=== PATIENT | male | born 1990 | race African-American/Black ===

== ENCOUNTER 2017-05-21 13:48 | Emergency (ER) | payer OTHER, SELFPAY ==
--- NOTE | 2017-05-21 15:27 | ER ---
Nurse's Notes [facility] Name: Marlo Davison Age: 27 yrs Sex: Male : 1990 Arrival Date: 05/21/2017 Time: 13:53 Bed 14 Private MD: Diagnosis: Cough;Diarrhea, unspecified Presentation: 05/21 14:04 Presenting complaint: Patient states: cough, difficulty breathing, nasal congestion ss that have been going on for months. Pt reports he was recently seen at [place] [facility], for abdominal issues, and discharged home with the diagnosis of acid reflux. Pt states that his mother wanted him to get checked today for black mold. Transition of care: patient was not received from another setting of care. Onset of symptoms is unknown. Care prior to arrival: None. 14:04 Method Of Arrival: Ambulatory ss 14:04 Acuity: NIMO 3 ss Triage Assessment: 14:45 Respiratory: the patient has mild shortness of breath. rb1 Historical: - Allergies: 14:06 No Known Allergies; ss - Home Meds: 14:06 None [Active]; ss - PMHx: 14:06 None; ss - PSHx: 14:06 None; ss - Immunization history:: Adult Immunizations unknown. - Social history:: Smoking status: Patient/guardian denies using tobacco. Screenin:45 Abuse screen: Denies threats or abuse. Nutritional screening: No deficits noted. rb1 Tuberculosis screening: No symptoms or risk factors identified. Fall Risk None identified. Assessment: 14:45 General: Appears in no apparent distress. comfortable, Behavior is calm, cooperative. rb1 General: Denies fever. Pain: Complains of pain in epigastric area Pain currently is 3 out of 10 on a pain scale. Pain began 2-3 weeks ago. Neuro: Level of Consciousness is awake, alert, obeys commands, Oriented to person, place, time, situation. Cardiovascular: Capillary refill is > 3 seconds is brisk in bilateral fingers Rhythm is regular. Respiratory: Airway is patent Respiratory effort is even, unlabored, Respiratory pattern is regular, symmetrical, Breath sounds are clear bilaterally. GI: Reports diarrhea, since 2-3 weeks. : No signs and/or symptoms were reported regarding the genitourinary system. Derm: Skin is pink, warm \T\ dry. 15:39 Reassessment: Patient appears in no apparent distress at this time. No changes from rb1 previously documented assessment. Vital Signs: 14:06 BP 157 / 95; Pulse 73; Resp 15; Temp 98.0(TE); Pulse Ox 98% on R/A; Weight 113.4 kg; Height 6 ft. 3 in. (190.50 cm); Pain 0/10; 15:39 BP 112 / 57; Pulse 66; Resp 17; Pulse Ox 100% on R/A; rb1 14:06 Body Mass Index 31.25 (113.40 kg, 190.50 cm) ED Course: 13:53 Patient arrived in ED. rg4 14:06 Triage completed. 14:06 Arm band placed on left wrist. 14:41 Sarath Hua MD is Attending Physician. [facility] 14:44 Ibis Dove, RN is Primary Nurse. rb1 14:45 Patient has correct armband on for positive identification. Bed in low position. Call rb1 light in reach. Side rails up X 1. Pulse ox on. NIBP on. 15:55 No provider procedures requiring assistance completed. Patient did not have IV access rb1 during this emergency room visit. Administered Medications: No medications were administered Outcome: 15:27 Discharge ordered by . [facility] 15:55 Discharged to home ambulatory. rb1 15:55 Condition: stable 15:55 Discharge instructions given to patient, Instructed on discharge instructions, follow up and referral plans. Demonstrated understanding of instructions, follow-up care, Prescriptions given X none 15:55 Patient left the ED. rb1 Signatures: Sarath Hua MD MD cha Smirch, Shelby, RN RN Ibis Dove, ALYSSA SHAH [facility] Emily Mark rg4 Corrections: (The following items were deleted from the chart) 16:11 15:41 Reassessment: Patient appears in no apparent distress at this time. No changes rb1 from previously documented assessment. rb1 16:13 16:12 Patient left the ED. rb1 rb1
--- NOTE | 2017-05-21 15:27 | EDPHYS ---
Physician Documentation [facility] Name: Marlo Davison Age: 27 yrs Sex: Male : 1990 Arrival Date: 05/21/2017 Time: 13:53 Bed 14 Private MD: ED Physician Sarath Hua HPI: 05/21 15:20 This 27 yrs old Black Male presents to ER via Ambulatory with complaints of Breathing tommy Difficulty. Historical: - Allergies: 14:06 No Known Allergies; ss - Home Meds: 14:06 None [Active]; ss - PMHx: 14:06 None; ss - PSHx: 14:06 None; ss - Immunization history:: Adult Immunizations unknown. - Social history:: Smoking status: Patient/guardian denies using tobacco. ROS: 15:21 Constitutional: Negative for fever, chills, and weight loss, Eyes: Negative for injury, tommy pain, redness, and discharge, ENT: Negative for injury, pain, and discharge, Neck: Negative for injury, pain, and swelling, Cardiovascular: Negative for chest pain, palpitations, and edema, Back: Negative for injury and pain, : Negative for injury, bleeding, discharge, and swelling, MS/Extremity: Negative for injury and deformity, Skin: Negative for injury, rash, and discoloration, Neuro: Negative for headache, weakness, numbness, tingling, and seizure, Psych: Negative for depression, anxiety, suicide ideation, homicidal ideation, and hallucinations, Allergy/Immunology: Negative for hives, rash, and allergies, Endocrine: Negative for neck swelling, polydipsia, polyuria, polyphagia, and marked weight changes, Hematologic/Lymphatic: Negative for swollen nodes, abnormal bleeding, and unusual bruising. 15:21 Respiratory: Positive for cough, with no reported sputum. 15:21 Abdomen/GI: Positive for diarrhea. Exam: 15:21 Constitutional: This is a well developed, well nourished patient who is awake, alert, tommy and in no acute distress. Head/Face: Normocephalic, atraumatic. Eyes: Pupils equal round and reactive to light, extra-ocular motions intact. Lids and lashes normal. Conjunctiva and sclera are non-icteric and not injected. Cornea within normal limits. Periorbital areas with no swelling, redness, or edema. ENT: Nares patent. No nasal discharge, no septal abnormalities noted. Tympanic membranes are normal and external auditory canals are clear. Oropharynx with no redness, swelling, or masses, exudates, or evidence of obstruction, uvula midline. Mucous membranes moist. Neck: Trachea midline, no thyromegaly or masses palpated, and no cervical lymphadenopathy. Supple, full range of motion without nuchal rigidity, or vertebral point tenderness. No Meningismus. Chest/axilla: Normal chest wall appearance and motion. Nontender with no deformity. No lesions are appreciated. Cardiovascular: Regular rate and rhythm with a normal S1 and S2. No gallops, murmurs, or rubs. Normal PMI, no JVD. No pulse deficits. Respiratory: Lungs have equal breath sounds bilaterally, clear to auscultation and percussion. No rales, rhonchi or wheezes noted. No increased work of breathing, no retractions or nasal flaring. Abdomen/GI: Soft, non-tender, with normal bowel sounds. No distension or tympany. No guarding or rebound. No evidence of tenderness throughout. Back: No spinal tenderness. No costovertebral tenderness. Full range of motion. Male : Normal genitalia with no discharge or lesions. Skin: Warm, dry with normal turgor. Normal color with no rashes, no lesions, and no evidence of cellulitis. MS/ Extremity: Pulses equal, no cyanosis. Neurovascular intact. Full, normal range of motion. Neuro: Awake and alert, GCS 15, oriented to person, place, time, and situation. Cranial nerves II-XII grossly intact. Motor strength 5/5 in all extremities. Sensory grossly intact. Cerebellar exam normal. Normal gait. Psych: Awake, alert, with orientation to person, place and time. Behavior, mood, and affect are within normal limits. Vital Signs: 14:06 BP 157 / 95; Pulse 73; Resp 15; Temp 98.0(TE); Pulse Ox 98% on R/A; Weight 113.4 kg; ss Height 6 ft. 3 in. (190.50 cm); Pain 0/10; 15:39 BP 112 / 57; Pulse 66; Resp 17; Pulse Ox 100% on R/A; rb1 14:06 Body Mass Index 31.25 (113.40 kg, 190.50 cm) MDM: 14:41 Patient medically screened. tommy 15:25 Data reviewed: vital signs, nurses notes, lab test result(s), hepatic panel, [facility] urinalysis, radiologic studies, plain films. Administered Medications: No medications were administered Disposition: 05/21/17 15:27 Discharged to Home. Impression: Cough, Diarrhea, unspecified. - Condition is Stable. - Discharge Instructions: Food Choices to Help Relieve Diarrhea, Adult, Diarrhea, Cool Mist Vaporizers, Diarrhea, [id number], Cough, Adult, [id number]. - Medication Reconciliation Form, Thank You Letter, Antibiotic Education, Prescription Opioid Use form. - Follow up: Private Physician; When: 2 - 3 days; Reason: Recheck today's complaints, Continuance of care, Re-evaluation by your physician. - Problem is new. - Symptoms have improved. Signatures: Sarath uHa MD MD cha Smirch, Shelby, RN RN ss Ibis Dove, RN RN rb1
== END 2017-05-21 16:12 | disposition home or self-care (01) ==
LOC: ER 13:48
DX: R19.7 Diarrhea, unspecified (principal)
CPT/HCPCS: 99283

== ENCOUNTER 2017-09-09 08:51 | Emergency (ER) | payer OTHER ==
[2017-09-09] MEDS ORDERED: DIAZEPAM 5 MG TABLET ONE (09:10)
[2017-09-09] MEDS ORDERED: KETOROLAC 30 MG/ML INJ ONE (09:10)
--- NOTE | 2017-09-09 09:48 | ER ---
Nurse's Notes [facility] Name: Marlo Davison Age: 27 yrs Sex: Male : 1990 Arrival Date: 09/09/2017 Time: 08:54 Bed 19 Private MD: Ulices Sanchez Diagnosis: Pain in left shoulder Presentation: 09/09 09:00 Presenting complaint: Patient states: Left shoulder pain after colliding with another hb player during basketball game yesterday. Transition of care: patient was not received from another setting of care. Onset of symptoms was September 08, 2017. Risk Assessment: Do you want to hurt yourself or someone else? Patient reports no desire to harm self or others. Initial Sepsis Screen: Does the patient meet any 2 criteria? No. Patient's initial sepsis screen is negative. Does the patient have a suspected source of infection? No. Patient's initial sepsis screen is negative. Care prior to arrival: None. 09:00 Method Of Arrival: Ambulatory 09:00 Acuity: NIMO 4 hb Triage Assessment: 09:02 General: Appears in no apparent distress. uncomfortable, Behavior is calm, cooperative. hb Pain: Pain currently is 10 out of 10 on a pain scale. Neuro: Level of Consciousness is awake, alert, obeys commands, Oriented to person, place, time, situation. Cardiovascular: Capillary refill < 3 seconds Patient's skin is warm and dry. Respiratory: Airway is patent Trachea midline Respiratory effort is even, unlabored, Respiratory pattern is regular, symmetrical. Musculoskeletal: Reports pain in left shoulder. 09:13 Injury Description: Crush injury. hj Historical: - Allergies: 09:01 No Known Allergies; hb - Home Meds: 09: None [Active]; hb - PMHx: 09: None; hb - PSHx: 09:01 None; hb - Immunization history:: Adult Immunizations up to date. - Social history:: Smoking status: unknown. - Ebola Screening: : No symptoms or risks identified at this time. Screenin:06 Abuse screen: Denies threats or abuse. Denies injuries from another. Nutritional hj screening: No deficits noted. Fall Risk None identified. 09:06 Tuberculosis screening: No symptoms or risk factors identified. hj Assessment: 09:06 General: Appears in no apparent distress. uncomfortable, Behavior is calm, cooperative, hj appropriate for age. Pain: Complains of pain in posterior aspect of left shoulder and anterior aspect of left shoulder. Neuro: Level of Consciousness is awake, alert, obeys commands, Oriented to person, place, time, situation, Appropriate for age. Cardiovascular: Capillary refill < 3 seconds Patient's skin is warm and dry. Respiratory: Airway is patent Respiratory effort is even, unlabored, Respiratory pattern is regular, symmetrical. : No signs and/or symptoms were reported regarding the genitourinary system. EENT: No signs and/or symptoms were reported regarding the EENT system. Derm: No signs and/or symptoms reported regarding the dermatologic system. Musculoskeletal: Range of motion: limited in posterior aspect of left shoulder and anterior aspect of left shoulder Reports pain in posterior aspect of left shoulder and anterior aspect of left shoulder. 09:19 Reassessment: awaiting xray;. Vital Signs: 09:00 BP 147 / 91; Pulse 70; Resp 16; Temp 97.9; Pulse Ox 99% on R/A; Pain 10/10; hb ED Course: 08:54 Patient arrived in ED. sb2 08:54 Ulices Sanchez DO is Private Physician. sb2 08:57 Katlyn Myers FNP-C [facility]. snw 08:57 Sraath Hua MD is Attending Physician. snw 08:59 Jose Ramon Jordan, ALYSSA is Primary Nurse. hj 09:00 Triage completed. hb 09:01 Arm band placed on right wrist. hb 09:13 Patient has correct armband on for positive identification. Bed in low position. Call hj light in reach. Side rails up X 1. 09:43 X-ray completed. Portable x-ray completed in exam room. Patient tolerated procedure jb2 well. 09:44 Shoulder Left (2 View) XRAY In Process Unspecified. EDMS 09:47 Ulices Sanchez DO is Referral Physician. snw 09:52 Sling applied to left arm. mh5 10:07 No provider procedures requiring assistance completed. Patient did not have IV access hj during this emergency room visit. 11:07 Sling applied to left arm. mh5 Administered Medications: 09:06 Drug: TORadol 60 mg Route: IM; Site: right deltoid; hj 09:12 Follow up: Response: No adverse reaction; Pain is decreased hj 09:06 Drug: Valium 5 mg Route: PO; 09:12 Follow up: Response: No adverse reaction; Anxiety decreased Outcome: 09:48 Discharge ordered by MD. echavarria 10:07 Discharged to home ambulatory. 10:07 Condition: stable 10:07 Discharge instructions given to patient, family, Instructed on discharge instructions, follow up and referral plans. medication usage, Demonstrated understanding of instructions, follow-up care, medications, Prescriptions given X 2. 10:08 Patient left the ED. Signatures: Dispatcher [employer] EDMS Katlyn Myers, DARREN-C RECORD CUTTER-Csnw Ki Varner2 Jose Ramon Jordan RN RN hj Baxter, Heather, RN RN hb Martinez, Maria 5 Steph Mukherjee2
--- NOTE | 2017-09-09 09:48 | EDPHYS ---
Physician Documentation [facility] Name: Marlo Davison Age: 27 yrs Sex: Male : 1990 Arrival Date: 09/09/2017 Time: 08:54 Bed 19 Private MD: Daniel [facility] ED Physician Sarath Hua HPI: 09/09 09:06 This 27 yrs old Black Male presents to ER via Ambulatory with complaints of Shoulder snw Injury. 09:06 The patient or guardian complains of decreased range of motion, pain, that is acute. snw posterior aspect of left shoulder and anterior aspect of left shoulder. Context: The problem was sustained at a sports field or court, resulted from playing sports, basketball, The patient experiences decreased range of motion, The patient reports no obvious deformity. painful arc. Onset: The symptoms/episode began/occurred suddenly, yesterday. Associated signs and symptoms: The patient has no apparent associated signs or symptoms. Severity of symptoms: At their worst the symptoms were moderate. Treatment prior to arrival includes: no previous treatment. The patient has not experienced similar symptoms in the past. It is unknown whether or not the patient has recently seen a physician. no head trauma, no LOC. Historical: - Allergies: 09:01 No Known Allergies; hb - Home Meds: 09:01 None [Active]; hb - PMHx: 09:01 None; hb - PSHx: 09:01 None; hb - Immunization history:: Adult Immunizations up to date. - Social history:: Smoking status: unknown. - Ebola Screening: : No symptoms or risks identified at this time. ROS: 09:04 Constitutional: Negative for fever, chills, and weight loss, Eyes: Negative for injury, snw pain, redness, and discharge, ENT: Negative for injury, pain, and discharge, Neck: Negative for injury, pain, and swelling, Cardiovascular: Negative for chest pain, palpitations, and edema, Respiratory: Negative for shortness of breath, cough, wheezing, and pleuritic chest pain, Abdomen/GI: Negative for abdominal pain, nausea, vomiting, diarrhea, and constipation, Back: Negative for injury and pain, : Negative for injury, bleeding, discharge, and swelling, Skin: Negative for injury, rash, and discoloration, Neuro: Negative for headache, weakness, numbness, tingling, and seizure. 09:04 MS/extremity: Positive for injury or acute deformity, contusion, decreased range of motion, pain, of the anterior aspect of left shoulder and posterior aspect of left shoulder, Negative for paresthesias, tingling. Exam: 09:04 Constitutional: This is a well developed, well nourished patient who is awake, alert, snw and in no acute distress. Head/Face: Normocephalic, atraumatic. Eyes: Pupils equal round and reactive to light, extra-ocular motions intact. Lids and lashes normal. Conjunctiva and sclera are non-icteric and not injected. Cornea within normal limits. Periorbital areas with no swelling, redness, or edema. ENT: Nares patent. No nasal discharge, no septal abnormalities noted. Tympanic membranes are normal and external auditory canals are clear. Oropharynx with no redness, swelling, or masses, exudates, or evidence of obstruction, uvula midline. Mucous membranes moist. Neck: Trachea midline, no thyromegaly or masses palpated, and no cervical lymphadenopathy. Supple, full range of motion without nuchal rigidity, or vertebral point tenderness. No Meningismus. Chest/axilla: Normal chest wall appearance and motion. Nontender with no deformity. No lesions are appreciated. Cardiovascular: Regular rate and rhythm with a normal S1 and S2. No gallops, murmurs, or rubs. Normal PMI, no JVD. No pulse deficits. Respiratory: Lungs have equal breath sounds bilaterally, clear to auscultation and percussion. No rales, rhonchi or wheezes noted. No increased work of breathing, no retractions or nasal flaring. Abdomen/GI: Soft, non-tender, with normal bowel sounds. No distension or tympany. No guarding or rebound. No evidence of tenderness throughout. Back: No spinal tenderness. No costovertebral tenderness. Full range of motion. Skin: Warm, dry with normal turgor. Normal color with no rashes, no lesions, and no evidence of cellulitis. MS/ Extremity: Pulses equal, no cyanosis. Neurovascular intact. Full but painful, normal range of motion. Neuro: Awake and alert, GCS 15, oriented to person, place, time, and situation. Cranial nerves II-XII grossly intact. Motor strength 5/5 in all extremities. Sensory grossly intact. Cerebellar exam normal. Normal gait. Vital Signs: 09:00 BP 147 / 91; Pulse 70; Resp 16; Temp 97.9; Pulse Ox 99% on R/A; Pain 10/10; hb MDM: 08:57 Patient medically screened. snw 09:49 Data reviewed: vital signs, nurses notes. Data interpreted: Pulse oximetry: on room air snw is 99 %. Interpretation: normal. Counseling: I had a detailed discussion with the patient and/or guardian regarding: the historical points, exam findings, and any diagnostic results supporting the discharge/admit diagnosis, the presence of at least one elevated blood pressure reading (>120/80) during this emergency department visit, radiology results, the need for outpatient follow up, to return to the emergency department if symptoms worsen or persist or if there are any questions or concerns that arise at home. Special discussion: Based on the history and exam findings, there is no indication for further emergent testing or inpatient evaluation. I discussed with the patient/guardian the need to see the orthopedic surgeon for further evaluation of the symptoms. I discussed with the patient/guardian the need to see the primary care provider for further evaluation of the symptoms. 09/09 09:04 Order name: Shoulder Left (2 View) XRAY snw 09/09 09:04 Order name: Sling; Complete Time: 09:49 snw Administered Medications: 09:06 Drug: TORadol 60 mg Route: IM; Site: right deltoid; hj 09:12 Follow up: Response: No adverse reaction; Pain is decreased 09:06 Drug: Valium 5 mg Route: PO; hj 09:12 Follow up: Response: No adverse reaction; Anxiety decreased Disposition: 15:22 Co-signature as Attending Physician, Sarath Hua MD I agree with the assessment and tommy plan of care. Disposition: 09/09/17 09:48 Discharged to Home. Impression: Pain in left shoulder. - Condition is Stable. - Discharge Instructions: Joint Pain, Musculoskeletal Pain, Shoulder Pain, Shoulder Range of Motion Exercises, Cryotherapy, Heat Therapy. - Prescriptions for Diclofenac Sodium 75 mg Oral Tablet Sustained Release - take 1 tablet by ORAL route 2 times per day; 30 tablet. orphenadrine citrate 100 mg Oral Tablet Sustained Release - take 1 tablet by ORAL route 2 times per day As needed; 20 tablet. - Medication Reconciliation Form, Thank You Letter, Antibiotic Education, Prescription Opioid Use, Work release form form. - Follow up: Emergency Department; When: As needed; Reason: Worsening of condition. Follow up: Ulices Sanchez DO; When: 2 - 3 days; Reason: Recheck today's complaints, Continuance of care, Re-evaluation by your physician. Signatures: Dispatcher [employer] EDMS Sarath Hua MD MD cha Therrien, Shelly, BANANA HANDLER-C BANANA HANDLER-Csnw Jose Ramon Jordan RN RN Cherie Luna RN RN Corrections: (The following items were deleted from the chart) 10:08 09:48 09/09/2017 09:48 Discharged to Home. Impression: Pain in left shoulder. Condition hj is Stable. Forms are Medication Reconciliation Form, Thank You Letter, Antibiotic Education, Prescription Opioid Use. Follow up: Emergency Department; When: As needed; Reason: Worsening of condition. Follow up: Ulices Sanchez; When: 2 - 3 days; Reason: Recheck today's complaints, Continuance of care, Re-evaluation by your physician. snw
--- NOTE | 2017-09-09 10:33 | RAD REPORT ---
EXAM DESCRIPTION: RAD - Shoulder Left 2 View - 09/09/2017 9:44 am CLINICAL HISTORY: Pain;Smash injury COMPARISON: No comparisons FINDINGS: No fracture or dislocation seen.
== END 2017-09-09 10:08 | disposition home or self-care (01) ==
LOC: ER 08:51
DX: M25.512 Pain in left shoulder (principal)
CPT/HCPCS: 96372; 99284